=== PATIENT | female | born 1965 | race Caucasian/White ===

== ENCOUNTER 2020-12-07 12:56 | Outpatient (CLI) | payer OTHER | END 2020-12-07 12:57 | disposition home or self-care (01) | LOC: MADLAB 12:56 | DX: T14.90XA Injury, unspecified, initial encounter (principal); S82.831A Other fracture of upper and lower end of right fibula, initial encounter for closed fracture ==

== ENCOUNTER 2022-03-04 10:37 | Outpatient (CLI) | payer SELFPAY | END 2022-03-04 10:38 | disposition home or self-care (01) | LOC: MADRAD 10:37 | PROVIDERS: ATTEND Family Medicine | DX: S93.401A Sprain of unspecified ligament of right ankle, initial encounter (principal); S82.51XA Displaced fracture of medial malleolus of right tibia, initial encounter for closed fracture; S82.61XA Displaced fracture of lateral malleolus of right fibula, initial encounter for closed fracture ==